=== PATIENT | male | born 1990 | race Caucasian/White ===

== ENCOUNTER → 2020-04-28 12:23 | Outpatient (BNVA) | payer SELFPAY | PROVIDERS: PCP Family Medicine; Visit Provider Nurse Practitioner | DX: R42 Dizziness and giddiness (principal); R82.90 Unspecified abnormal findings in urine | CPT/HCPCS: 81000 ==

== ENCOUNTER 2020-05-07 12:19 | Outpatient (CLI) | payer OTHER, SELFPAY ==
--- NOTE | 2020-05-07 12:48 | XR_ITS ---
WS: [id number] Sinus series, 3 views, 05/07/2020 Clinical Data: DIZZINESS/GIDDINESS Comparison: None. Findings: There are no air-fluid levels. No mucoperiosteal thickening is seen. There is no bone destruction or erosion. The orbits are unremarkable. XR/XR sinus min 3V* [id number] Impression: Negative sinus series.
== END 2020-05-07 12:20 | disposition home or self-care (01) ==
PROVIDERS: PCP Nurse Practitioner Family; Visit Provider Nurse Practitioner Family
DX: R42 Dizziness and giddiness (principal)
CPT/HCPCS: 70220

== ENCOUNTER 2020-07-30 17:59 | Emergency (ER) | payer OTHER, SELFPAY ==
[2020-07-30 20:10] VITALS: BP 154/113; PULSE 106; RESP 18; TEMP 36.8; O2SAT 99; BMI 31.4
--- NOTE | 2020-07-30 20:10 | W.ED.COVID ---
HPI - COVID General: Chief Complaint: COVID symptoms Stated Complaint: TESTED FOR COVID TODAY/SPOUSE POS, HAVING SYMPTOMS Time Seen by Provider: 07/30/20 19:51 Source: patient Mode of arrival: ambulatory Limitations: no limitations History of Present Illness: HPI Narrative: Patient comes in for 3 days of upper respiratory infection symptoms. Patient spouse was positive for COVID. Patient was tested today to rule out COVID. Patient appears mildly unwell. Patient appears in no pain. MD complaint: reported COVID exposure Prior covid testing: yes, results pending at other location COVID 19 common symptoms: positive chills, cough and dyspnea COVID 19 other sytmptoms: positive pleuritic pain Onset (ago): day(s) Severity: mild COVID Results: No Data to Display Review of Systems General: Reports: 10 or more systems reviewed and unremarkable except in HPI and below Const: Reports: chills Resp: Reports: dyspnea PFSH ED PFSH: Social History Smoking and tobacco status: never smoked Alcohol intake: current Physical Exam Const: COMMON NORMALS: no acute distress and patient oriented x3 GENERAL APPEARANCE: cooperative HENMT: COMMON NORMALS: normocephalic, TM's normal bilaterally and Normal external nose present HEAD & SCALP: normal to inspection and normocephalic NOSE: Normal external nose present TYMPANIC MEMBRANE: TM's normal bilaterally MOUTH: Normal oral and palatal mucosa present THROAT: posterior oropharynx normal Eye: GENERAL EYE: appearance normal, both eyes and all related structures Neck/C-Spine: COMMON NORMALS: full ROM Lymph: LYMPHATIC: no lymphadenopathy noted Chest: COMMONS NORMALS: normal inspection of the chest Resp: COMMON NORMALS: normal respiratory effort EFFORT & INSPECTION: Yes able to speak in complete sentences Cardio: COMMON NORMALS: regular rate and regular rhythm RATE: regular rate RHYTHM: regular rhythm GI: COMMON NORMALS: non-tender Back/Pelvis: COMMON NORMALS: thoracic and lumbar spine normal to inspection Extremity: COMMON NORMALS: normal to inspection Neuro: COMMON NORMALS: patient oriented x3 and moves all extremities Psych: COMMON NORMALS: mental status grossly normal and cooperative Skin: COMMON NORMALS: no rashes or lesions noted GENERAL SKIN EXAM: no rashes or lesions noted Course Vital Signs: Vital signs: Vital Signs Temperature 98.3 F 07/30/20 20:10 Pulse Rate 106 H 07/30/20 20:10 Respiratory Rate 18 07/30/20 20:10 Blood Pressure 154/113 07/30/20 20:10 Pulse Oximetry 99 07/30/20 20:10 MDM - COVID MDM Narrative Medical decision making narrative: Patient comes in today for complaints of shortness of breath. And close COVID exposure. On exam no significant abnormalities are noted. Vital signs are stable. Reviewed exam with patient with recommendations for treatment and follow-up. Discussed need for return to the emergency department. Patient has outstanding COVID-19 results through another facility. Patient reports understanding of care plan and need for follow-up. Differential Diagnosis Differential diagnosis: Likely COVID 19 and other viral infection Lab Data COVID Results: No Data to Display Discharge Plan Discharge Patient Disposition: Home Clinical Impression: Close exposure to 2019 novel coronavirus Condition: Stable Prescriptions: No Action meclizine 12.5 mg tablet 12.5 mg PO BID PRN (Reason: dizziness) Qty: 20 RF: 0 ciprofloxacin HCl [Cipro] 500 mg tablet 500 mg PO BID 7 Days Qty: 14 RF: 0 Discharge Orders: Discharge Order (Routine); Ordered 07/30/20 Ordered By: Antoine Juárez Referrals: Jimmie Boland NP [Primary Care Provider] - Discharge Diet: Usual diet Discharge Activity: Increase activity as tolerated Patient Instructions: Upper Respiratory Infection (ED) Activity Restrictions/Additional Instructions: Home and rest. Acetaminophen and ibuprofen for pain and discomfort. Drink plenty of fluids. Stay well-hydrated. Monitor oxygen per pulse ox every 3 hours as needed for evaluation of oxygen saturation. If oxygen saturation is below 90% return to the ER for further evaluation and treatment. Return to the ER as needed for concern. Coding Level of Care Code ED Upper And Bottom Lacer Hand for Chg Fwd Exam Comprehensive
[2020-07-30 20:58] VITALS: O2SAT 99
== END 2020-07-30 21:14 | disposition home or self-care (01) ==
PROVIDERS: Emergency Provider Nurse Practitioner Family; PCP Nurse Practitioner Family
DX: Z20.828 Contact with and (suspected) exposure to other viral communicable diseases (principal)
CPT/HCPCS: 12345; 99282

== ENCOUNTER 2020-08-09 16:36 | Outpatient (CLI) | payer OTHER, SELFPAY ==
--- NOTE | 2020-08-09 | XRR_ITS ---
PROCEDURE INFORMATION: Exam: XR Right Knee Exam date and time: 08/09/2020 4:55 PM Age: 30 years old Clinical indication: Pain and injury or trauma; Other: Hit knee on trailer; Blunt trauma; Right; Additional info: RT knee pain TECHNIQUE: Imaging protocol: XR Right knee. Views: Frontal, lateral, and oblique views. COMPARISON: No relevant prior studies available. FINDINGS: Bones/joints: Normal. Soft tissues: Normal. XR/XR knee RT 3V* [id number] IMPRESSION: No acute findings.
== END 2020-08-09 16:37 | disposition home or self-care (01) ==
LOC: RAD 16:40
PROVIDERS: PCP Nurse Practitioner Family; Visit Provider Nurse Practitioner Family
DX: M25.561 Pain in right knee (principal)
CPT/HCPCS: 73562

== ENCOUNTER 2024-02-08 07:23 | Emergency (ER) | payer SELFPAY ==
[2024-02-08 07:29] VITALS: BP 122/82; PULSE 67; RESP 18; TEMP 36.8; O2SAT 96; BMI 27.6
--- NOTE | 2024-02-08 07:34 | XR_ITS ---
WS: [id number] Exam: XR chest 1V portable [id number] Date/Time of Exam: 02/08/2024 7:34 AM Reason For Exam: syncope No priors. Findings: The lungs are clear and fully expanded. Costophrenic angles are sharp. No infiltrates. Bronchovascula r relief appears normal. Cardiac silhouette is unremarkable. Bony elements are intact. IMPRESSION: Unremarkable chest radiograph.
--- NOTE | 2024-02-08 07:35 | ECG_ITS ---
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 Measurements Intervals [place] Rate: 69 P: 39 NH: 186 QRS: 71 QRSD: 92 T: 2 QT: 358 QTc: 386 Interpretive Statements SINUS RHYTHM No previous ECG available for comparison Electronically Signed On 02-08-2024 16:59:20 CDT by Stella Hendrickson M.D. [id number]
[2024-02-08 08:02] LABS: Basophils % 0.4 %; Eosinophils # 0.1 10^3/uL (0.0-0.8); Eosinophils % 1.1 %; Lymphocytes % 12.1 %; Mean Corpuscular HGB Conc 36.3 g/dL (30-55); Mean Corpuscular Hemoglobin 31.7 pg (27-33); Mean Corpuscular Volume 87.4 fl (82-101); Mean Platelet Volume 9.2 fL (7.4-10.4); Monocytes # 0.6 10^3/uL (0.2-0.9); Monocytes % 7.4 %; Neutrophils # 6.48 10^3/uL (1.8-7.7); Neutrophils % 78.3 %; Nucleated Red Blood Cells % 0 %; Platelet Count 248 10^3/cmm (157-399); Red Blood Count 5.49 10^6/uL (3.85-5.65); Red Cell Distribution Width 12.2 % (12.1-15.1); White Blood Count 8.27 10^3/uL (3.29-11.43)
[2024-02-08 08:08] LABS: Add Urine Microscopic? NO; Charge for UA Resulting for Rev
[2024-02-08 08:13] LABS: Bilirubin Urine Neg (Negative); Blood Urine Neg (Negative); Glucose Urine UA Norm (Normal); Ketones Urine Negative (Negative); Leukocyte Esterase Urine Negative (Negative); Nitrate Urine Negative (Negative); Protein Urine Neg (Negative); Urine Appearance Clear (CLEAR); Urine Color Yellow (Yellow); Urobilinogen Urine Norm (Negative); pH Urine 5 (5-7)
--- NOTE | 2024-02-08 08:13 | ED_ITS ---
HPI - Syncope 2 General: Chief Complaint: Syncope Stated Complaint: passed out at work Time Seen by Provider: 02/08/24 07:27 History of Present Illness: Patient presents to the ER with complaints of was having a syncopal episode this morning. Patient does not remember the event. Patient denies ever having one before. Patient says he ate and drank the same this morning as usual. Patient's in hospital bed resting comfortably no acute distress. Review of Systems 2 General: Reports: 10 or more systems reviewed and unremarkable except in HPI and below PFSH ED 2 PFSH: Social History Smoking and tobacco/nicotine status: never used tobacco/nicotine Alcohol intake: current Physical Exam 2 Const: COMMON NORMALS: no acute distress, average body habitus, patient oriented x3, no limitations, healthy appearing, alert and well nourished HENMT: COMMON NORMALS: normocephalic, atraumatic, hearing grossly normal bilaterally, external ears normal, Normal external nose present, moist oral mucous membranes and oropharynx normal HEAD & SCALP: normocephalic and atraumatic NOSE: Normal external nose present EXTERNAL EAR: Yes external ears normal Eye: COMMON NORMALS: Equal, round and reactive pupils present, EOMs intact bilaterally, conjunctivae normal and no scleral icterus CONJUNCTIVA: Yes conjunctivae normal PUPIL: Yes Equal, round and reactive pupils present Neck/C-Spine: COMMON NORMALS: full ROM, no lymphadenopathy, supple, no meningeal signs, no JVD and Thyroid normal THYROID: Thyroid normal Chest: COMMONS NORMALS: normal inspection of the chest and normal palpation of entire chest wall Resp: COMMON NORMALS: normal respiratory effort, No retractions, No use of accessory muscles and clear to auscultation bilaterally AUSCULTATION: clear to auscultation bilaterally Cardio: COMMON NORMALS: no JVD, regular rate, regular rhythm, S1 normal heart sound present, S2 normal heart sound present, No gallops present (Cardio), No clicks present (Cardio), No murmurs present (Cardio) and No rub (Cardio) R ATE: regular rate RHYTHM: regular rhythm HEART SOUNDS: S1 normal heart sound present and S2 normal heart sound present GI: COMMON NORMALS: Normal to inspection, nondistended, normoactive bowel sounds present, Soft to palpation, non-tender, No hepatosplenomegaly present and no masses PALPATION: Yes Soft to palpation and Yes No hepatosplenomegaly present Neuro: COMMON NORMALS: patient oriented x3 SENSORIUM/ORIENTATION: Yes alert MENINGEAL SIGNS: Yes no meningeal signs Course 2 Vital Signs: Vital signs: Vital Signs Temperature 98.3 F 02/08/24 07:29 Pulse Rate 72 02/08/24 09:36 Respiratory Rate 18 02/08/24 07:29 Blood Pressure 135/107 02/08/24 09:36 Pulse Oximetry 98 02/08/24 09:36 Oxygen Delivery Me thod Room Air 02/08/24 07:29 MDM - Syncope Medical Decision Making Patient physical exam as well as lab work performed included CBC CMP cardiac enzymes, chest x-ray, urine urine drug screen and EKG, all of which was essentially benign. Results was discussed with the patient patient be discharged to follow-up with his PCP within next 7 days for further evaluation and treatment. Differential Diagnosis Likely vasovagal syncope; Unlikely syncope due to orthostatic hypotension, complete atrioventricular block, subarachnoid hemorrhage, pulmonary embolism or dehydration Medical Records I reviewed the patient's medical records. Lab Data I reviewed the patient's lab results. 02/08/24 07:55 02/08/24 07:55 Laboratory Results WBC 8.27 10^3/uL (3.29-11.43) 02/08/24 07:55 RBC 5.49 10^6/uL (3.85-5.65) 02/08/24 07:55 Hgb 17.40 g/dL (11.27-16.99) H 02/08/24 07:55 Hct 48.0 % (37-53) 02/08/24 07:55 MCV 87.4 fl (82-101) 02/08/24 07:55 MCH 31.7 pg (27-33) 02/08/24 07:55 MCHC 36.3 g/dL (30-55) 02/08/24 07:55 RDW 12.2 % (12.1-15.1) 02/08/24 07:55 Plt Count 248 10^3/cmm (157-399) 02/08/24 07:55 MPV 9.2 fL (7.4-10.4) 02/08/24 07:55 Neut % (Auto) 78.3 % 02/08/24 07:55 Lymph % (Auto) 12.1 % 02/08/24 07:55 [place] % (Auto) 7.4 % 02/08/24 07:55 Eos % (Auto) 1.1 % 02/08/24 07:55 Baso % (Auto) 0.4 % 02/08/24 07:55 Neut # (Auto) 6.48 10^3/uL (1.8-7.7) 02/08/24 07:55 Lymph # (Auto) 1.0 10^3/uL (0.8-4.8) 02/08/24 07:55 Randolph # (Auto) 0.6 10^3/uL (0.2-0.9) 02/08/24 07:55 Eos # (Auto) 0.1 10^3/uL (0.0-0.8) 02/08/24 07:55 Baso # (Auto) 0.0 10^3/uL (0.0-0.1) 02/08/24 07:55 Nucleated RBC % (auto) 0 % 02/08/24 07:55 Nucleated RBCs # 0.0 /100WBC 02/08/24 07:55 Sodium 140 mmol/L (136-145) 02/08/24 07:55 Potassium 4.1 mmol/L (3.5-5.1) 02/08/24 07:55 Chloride 100 mmol/L (98-107) 02/08/24 07:55 Carbon Dioxide 27 mmol/L (22-29) 02/08/24 07:55 Anion Gap 17.1 (5-19) 02/08/24 07:55 BUN 18 mg/dL (6-20) 02/08/24 07:55 Creatinine 1.0 mg/dL (0.7-1.2) 02/08/24 07:55 GFR Calculation 87.2 mL/min (90-130) L 02/08/24 07:55 Glucose 103 mg/dL (65-115) 02/08/24 07:55 Calculated Osmolality 292 mOsm/kg (285-295) 02/08/24 07:55 Calcium 10.0 mg/dL (8.5-10.5) 02/08/24 07:55 Magnesium 2.0 mg/dL (1.7-2.3) 02/08/24 07:55 Total Bilirubin 0.4 mg/dL (0.15-1.2) 02/08/24 07:55 AST 15 U/L (0-40) 02/08/24 07:55 ALT 25 U/L (0-41) 02/08/24 07:55 Alkaline Phosphatase 80 U/L (40-130) 02/08/24 07:55 Troponin T Baseline < 6 ng/L (0-15) 02/08/24 07:55 Total Protein 7.4 g/dL (6.6-8.7) 02/08/24 07:55 Albumin 4.7 g/dL (3.5-5.2) 02/08/24 07:55 Globulin 2.7 g/dL (1.3-4.6) 02/08/24 07:55 TSH 2.06 uIU/mL (0.27-4.20) 02/08/24 07:55 Urine Color Yellow (Yellow) 02/08/24 08:04 Urine Appearance Clear (CLEAR) 02/08/24 08:04 Urine pH 5 (5-7) 02/08/24 08:04 Ur Specific [place] 1.030 (1.005-1.030) 02/08/24 08:04 Urine Protein Neg (Negative) 02/08/24 08:04 Urine Glucose (UA) Norm (Normal) 02/08/24 08:04 Urine Ketones Negative (Negative) 02/08/24 08:04 Urine Blood Neg (Negative) 02/08/24 08:04 Urine Nitrate Negative (Negative) 02/08/24 08:04 Urine Bilirubin Neg (Negative) 02/08/24 08:04 Urine Urobilinogen Norm mg/dL (Negative) 02/08/24 08:04 Ur Leukocyte Esterase Negative (Negative) 02/08/24 08:04 Urine Opiates Screen Negative ng/mL (Negative) 02/08/24 08:04 Ur Barbiturates Screen Negative ng/mL (Negative) 02/08/24 08:04 Ur Phencyclidine Scrn Negative ng/mL (Negative) 02/08/24 08:04 Ur Amphetamines Screen Negative ng/mL (Negative) 02/08/24 08:04 U Benzodiazepines Scrn Negative ng/mL (Negative) 02/08/24 08:04 Urine Cocaine Screen Negative ng/mL (Negative) 02/08/24 08:04 U Marijuana (THC) Screen Negative ng/mL (Negative) 02/08/24 08:04 All radiology interpretation(s) finalized by discharge EKG Data EKG 1: I personally reviewed and interpreted this EKG as follows: EKG interpretation date: 02/08/24 EKG interpretation time: 07:47 Prior EKG tracings: not available for review Interpretation: Ventricular rate 69 bpm, WI interval 186, QRS duration 92, QTc 378, sinus rhythm, Discharge Plan Discharge Patient Disposition: Home Clinical Impression: Syncope Qualifiers: Syncope type: unspecified Qualified Code(s): R55 - Syncope and collapse Condition: Stable Prescriptions: No Action No Known Home Medications Discharge Orders: Discharge ED (Routine); Ordered 02/08/24 Ordered By: Saeid Gonzales Patient Instructions: Syncope (ED) Activity Restrictions/Additional Instructions: Your evaluation in ER did not show any acute cause of your syncope. Please follow-up with your family practice physician in the next 7 days for further evaluation and treatment. If this happens again please feel free to return to the ER. Coding Level of Care Code ED Product Safety Expert for Santo Jones
[2024-02-08 08:19] LABS: Amphetamines Screen Urine Negative (Negative); Barbiturates Screen Urine Negative (Negative); Benzodiazepines Screen Urine Negative (Negative); Cocaine Screen Urine Negative (Negative); Opiate Screen Urine Negative (Negative); PCP Screen Urine Negative (Negative); THC Screen Urine Negative (Negative)
[2024-02-08 08:24] LABS: Troponin(5th) Baseline < 6 ng/L (0-15)
[2024-02-08 08:32] LABS: Alanine Aminotransferase 25 U/L (0-41); Albumin Level 4.7 g/dL (3.5-5.2); Alkaline Phosphatase 80 U/L (40-130); Anion Gap 17.1 (5-19); Aspartate Amino Transferase 15 U/L (0-40); Blood Urea Nitrogen 18 mg/dL (6-20); Carbon Dioxide 27 mmol/L (22-29); Chloride 100 mmol/L (98-107); Creatinine Clr Calc Pharmacy 122.7831; Globulin 2.7 g/dL (1.3-4.6); Glomerular Filtration Rate 87.2 mL/min (90-130); Glucose 103 mg/dL (65-115); Osmolality Calculated 292 mOsm/kg (285-295); Potassium 4.1 mmol/L (3.5-5.1); Sodium 140 mmol/L (136-145); Thyroid Stimulating Hormone 2.06 uIU/mL (0.27-4.20); Total Bilirubin 0.4 mg/dL (0.15-1.2); Total Protein 7.4 g/dL (6.6-8.7)
[2024-02-08 08:33] VITALS: BP 158/112; PULSE 64; O2SAT 96
[2024-02-08 09:36] VITALS: BP 135/107; PULSE 72; O2SAT 98
== END 2024-02-08 09:37 | disposition home or self-care (01) ==
PROVIDERS: Emergency Provider Emergency Medicine
DX: R55 Syncope and collapse (principal)
CPT/HCPCS: 71045; 80053; 80306; 81003; 83735; 84443; 84484; 85025; 93005; 99285

== ENCOUNTER 2024-11-04 14:04 | Emergency (ER) | payer OTHER, SELFPAY ==
[2024-11-04 14:15] VITALS: BP 138/96; PULSE 78; RESP 17; TEMP 36.7; O2SAT 98; BMI 30.4
--- NOTE | 2024-11-04 16:01 | W.ED.EYEPROB ---
HPI - Eye Problem General: Chief complaint: Eye Problems Stated complaint: left eye pain Time Seen by Provider: 11/04/24 15:25 Source: patient Mode of arrival: ambulatory Limitations: no limitations History of Present Illness: 34-year-old male who states that this morning he noticed drooping and numbness to the left side of his face. He states he has been having some difficulty closing his left eye has had left-sided facial droop. He denies any headache denies any slurred speech denies any other weakness. He denies any worse improved factors Associated symptoms: Denies fever(s), headache(s), nausea, neck pain or vomiting Related Data Previous Rx's Medication Instructions Recorded ondansetron 8 mg disintegrating 8 mg PO Q8H 5 days #15 tabs 03/08/24 tablet prednisone 50 mg tablet 50 mg PO DAILY #5 tabs 11/04/24 Allergies Allergy/AdvReac Type Severity Reaction Status Date / Time No Known Allergies Allergy Verified 11/04/24 14:18 Review of Systems Const: Denies: fever(s), chills, body aches or change in appetite Eyes: Denies: blurry vision or eye discomfort ENMT: Denies: throat pain or dental pain Card: Denies: chest pain Resp: Denies: dyspnea GI: Denies: abdominal pain, nausea, vomiting or diarrhea Musc: Denies: neck pain or back pain Skin/Breast: Denies: rash Neuro: Denies: headache(s) PFS ED PFSH: Social History Smoking and tobacco/nicotine status: never used tobacco/nicotine Alcohol intake: current Physical Exam Const: COMMON NORMALS: no acute distress, patient oriented x3 and healthy appearing HENMT: COMMON NORMALS: normocephalic and atraumatic HEAD & SCALP: normocephalic and atraumatic Eye: COMMON NORMALS: Equal, round and reactive pupils present and EOMs intact bilaterally PUPIL: Yes Equal, round and reactive pupils present Neck/C-Spine: COMMON NORMALS: full ROM and supple Chest: COMMONS NORMALS: normal inspection of the chest Resp: COMMON NORMALS: normal respiratory effort Cardio: COMMON NORMALS: regular rate, regular rhythm and No murmurs present (Cardio) RATE: regular rate RHYTHM: regular rhythm GI: COMMON NORMALS: Normal to inspection, nondistended, normoactive bowel sounds present, Soft to palpation, non-tender and no masses PALPATION: Yes Soft to palpation Extremity: COMMON NORMALS: normal to inspection and full ROM Neuro: COMMON NORMALS: patient oriented x3 and moves all extremities SPEECH: speech normal GAIT: Yes Normal gait present MOTOR EXAM: 5/5 motor strength present throughout OTHER: Facial droop noted to the left side of the face has difficulty closing his left eye Psych: COMMON NORMALS: mental status grossly normal, Normal thought process present and cooperative THOUGHT PROCESS: Normal thought process present Skin: COMMON NORMALS: no rashes or lesions noted and no wounds GENERAL SKIN EXAM: no rashes or lesions noted Course Vital Signs: Vital signs: Vital Signs Temperature 98.1 F 11/04/24 14:15 Pulse Rate 78 11/04/24 14:15 Respiratory Rate 17 11/04/24 14:15 Blood Pressure 138/96 11/04/24 14:15 Pulse Oximetry 98 11/04/24 14:15 Oxygen Delivery Me thod Room Air 11/04/24 14:15 MDM - Eye Problem Medical Decision Making Patient presents with a Almanzar's palsy has no signs of a stroke we will start him on steroids he is well-appearing here he stable for discharge follow-up PCP return if worsening understand agrees to plan. Medical Records I reviewed the patient's medical records. No radiology studies performed this visit Discharge Plan Discharge Patient Disposition: Home Clinical Impression: Almanzar's palsy Condition: Stable Prescriptions: New prednisone 50 mg tablet 50 mg PO DAILY Qty: 5 0RF No Action ondansetron 8 mg tablet,disintegrating 8 mg PO Q8H 5 Days Qty: 15 0RF Discharge Orders: Discharge ED (Routine); Ordered 11/04/24 Ordered By: Adrienne Castaneda Discharge Diet: Advance as tolerated Discharge Activity: Resume usual activity Patient Instructions: Almanzar Palsy (ED) Coding Level of Care Code ED Line Locator for Santo Jones NIH stroke score NIHSS Level Of Consciousness - 1a: 0 Level Of Consciousness Questions - 1b: Both Correct Level Of Consciousness Commands - 1c: Both Correct Best Gaze - 2: Normal Visual Burns - 3: No Visual Loss Facial Palsy - 4: Partial Paralysis Motor Arm Right - 5: No Drift Motor Arm Left - 5: No Drift Motor Leg Right - 6: No Drift Motor Leg Left - 6: No Drift Limb Ataxia - 7: Absent Sensory - 8: Normal Best Language - 9: No Aphasia Dysarthia - 10: Normal Extinction And Inattention - 11: 0 Score Total Score: 2
[2024-11-04] MEDS: predniSONE 20 mg Tablet 60 MG PO (16:05)
[2024-11-04 16:11] VITALS: BP 119/88; PULSE 68; O2SAT 97
== END 2024-11-04 16:12 | disposition home or self-care (01) ==
PROVIDERS: Emergency Provider Emergency Medicine
DX: G51.0 Bell's palsy (principal)
CPT/HCPCS: 99283; J7512

== ENCOUNTER 2024-11-25 15:49 | Emergency (ER) | payer OTHER, SELFPAY ==
[2024-11-25 15:51] VITALS: BP 134/97; PULSE 123; TEMP 37.4; O2SAT 95
--- NOTE | 2024-11-25 16:27 | CTR_ITS ---
PROCEDURE INFORMATION: Exam: CT Head Without Contrast Exam date and time: 11/25/2024 5:07 PM Age: 34 years old Clinical indication: Pain; Headache; Migraine; Aura effect not specified; Other: Unknown; Additional info: [place] TECHNIQUE: Imaging protocol: Computed tomography of the head without contrast. Radiation optimization: All CT scans at this facility use at least one of these dose optimization techniques: automated exposure control; mA and/or kV adjustment per patient size (includes targeted exams where dose is matched to clinical indication); or iterative reconstruction. COMPARISON: CT facial bones wo con* [id number] 03/10/2019 11:12 PM RADIATION DOSE METRICS: Total DLP (mGy-cm): 1250.21 FINDINGS: Brain: Normal. No hemorrhage. Unremarkable white matter. No mass effect. Cerebral ventricles: Normal in size, for age, and midline in position. Paranasal sinuses: Visualized sinuses are clear. No air fluid levels. Mastoid air cells: Visualized mastoid air cells are well aerated. Bones: Intact. No acute fracture detected. Soft tissues: Unremarkable. Other: There is moderate to marked cerumen within the external auditory canals bilaterally. CT/CT head wo con* [id number] IMPRESSION: No acute intracranial abnormality. If there is persistent clinical concern, MRI may be helpful for further evaluation.
--- NOTE | 2024-11-25 16:28 | ED_ITS ---
HPI - Headache General: Chief Complaint: Headache Stated Complaint: forehead pressure Time Seen by Provider: 11/25/24 16:22 Source: patient Mode of arrival: ambulatory Limitations: no limitations History of Present Illness: 34-year-old male who states that he has had a headache since this morning. He states he has been getting frequent migraines recently. He states headaches gradually worse and has had some vomiting photophobia and photophobia denies any fever rates his headache a 7 out of 10 currently Associated symptoms: Deny chest pain, fever(s), nausea, rash or vomiting Related Data Home Medications ?Medication ?Instructions ?Recorded ?Confirmed No Known Home Medications 11/25/2402/13 Allergies Allergy/AdvReac Type Severity Reaction Status Date / Time No Known Allergies Allergy Verified 11/25/24 15:56 Review of Systems Const: Denies: fever(s), chills, body aches or change in appetite Eyes: Denies: blurry vision or eye discomfort ENMT: Denies: throat pain or dental pain Card: Denies: chest pain Resp: Denies: dyspnea GI: Denies: abdominal pain, nausea, vomiting or diarrhea Musc: Denies: neck pain or back pain Skin/Breast: Denies: rash Neuro: Reports: headache(s) PFSH ED PFSH: Social History Smoking and tobacco/nicotine status: never used tobacco/nicotine Alcohol intake: current Physical Exam Const: COMMON NORMALS: no acute distress, patient oriented x3 and healthy appearing HENMT: COMMON NORMALS: normocephalic and atraumatic HEAD & SCALP: normocephalic and atraumatic Eye: COMMON NORMALS: Equal, round and reactive pupils present PUPIL: Yes Equal, round and reactive pupils present Neck/C-Spine: COMMON NORMALS: full ROM and supple Chest: COMMONS NORMALS: normal inspection of the chest Resp: COMMON NORMALS: normal respiratory effort, No retractions, No use of accessory muscles and clear to auscultation bilaterally AUSCULTATION: clear to auscultation bilaterally Cardio: COMMON NORMALS: regular rate, regular rhythm and No murmurs present (Cardio) RATE: regular rate RHYTHM: regular rhythm Extremity: COMMON NORMALS: normal to inspection and full ROM Neuro: COMMON NORMALS: patient oriented x3, moves all extremities and no focal motor deficits Psych: COMMON NORMALS: mental status grossly normal, Normal thought process present and cooperative THOUGHT PROCESS: Normal thought process present Skin: COMMON NORMALS: no rashes or lesions noted and no wounds GENERAL SKIN EXAM: no rashes or lesions noted Course Vital Signs: Vital signs: Vital Signs Temperature 99.4 F 11/25/24 15:51 Pulse Rate 106 H 11/25/24 16:59 Blood Pressure 140/89 11/25/24 16:59 Pulse Oximetry 95 11/25/24 16:59 Oxygen Delivery Me thod Room Air 11/25/24 16:59 MDM - Headache Medical Decision Making Patient presents with headaches likely migraine headache CT head here is normal he has no signs of meningitis he stable for discharge follow-up PCP return if worsening. Medical Records I reviewed the patient's medical records. Lab Data Radiology Impressions Head CT 11/25/24 16:27 IMPRESSION: No acute intracranial abnormality. If there is persistent clinical concern, MRI may be helpful for further evaluation. All radiology interpretation(s) finalized by discharge Discharge Plan Discharge Patient Disposition: Home Clinical Impression: Headache Condition: Stable Prescriptions: No Action No Known Home Medications Discharge Orders: Discharge ED (Routine); Ordered 11/25/24 Ordered By: Adrienne Castaneda Discharge Diet: Advance as tolerated Discharge Activity: Resume usual activity Patient Instructions: General Headache (ED) Print Language: [place] Citizen Coding Level of Care Code ED Electronic Tech for Santo Jones
[2024-11-25] MEDS: ketorolac 30 mg/mL INJ 15 MG IVP (16:53)
[2024-11-25] MEDS: diphenhydrAMINE 50 mg/mL SDV 1mL IVP (16:55)
[2024-11-25] MEDS: metoclopramide 5 mg/mL SDV 2 mL 10 MG IVP (16:56)
[2024-11-25 16:59] VITALS: BP 140/89; PULSE 106; O2SAT 95
[2024-11-25 17:45] VITALS: BP 120/89; PULSE 106; O2SAT 94
== END 2024-11-25 17:47 | disposition home or self-care (01) ==
PROVIDERS: Emergency Provider Emergency Medicine
DX: R51.9 Headache, unspecified (principal)
CPT/HCPCS: 70450; 96374; 96375; 99285; J1200; J1885; J2765

== ENCOUNTER 2024-11-27 13:22 | Emergency (ER) | payer OTHER, SELFPAY ==
[2024-11-27 13:38] VITALS: BP 137/100; PULSE 107; RESP 18; TEMP 37.8; O2SAT 97; BMI 30.7
[2024-11-27 14:03] LABS: Basophils % 0.6 %; Eosinophils % 0.2 %; Hematocrit 51.6 % (37-53); Lymphocytes # 0.7 10^3/uL (0.8-4.8); Lymphocytes % 14.3 %; Mean Corpuscular HGB Conc 34.7 g/dL (30-55); Mean Corpuscular Hemoglobin 31.6 pg (27-33); Mean Corpuscular Volume 91.2 fl (82-101); Mean Platelet Volume 9.4 fL (7.4-10.4); Monocytes % 18.6 %; Neutrophils % 65.9 %; Nucleated Red Blood Cells % 0 %; Platelet Count 224 10^3/cmm (157-399); Red Blood Count 5.66 10^6/uL (3.85-5.65); Red Cell Distribution Width 12.4 % (12.1-15.1); White Blood Count 5.16 10^3/uL (3.29-11.43)
[2024-11-27 14:20] LABS: Alanine Aminotransferase 29 U/L (0-41); Albumin Level 4.5 g/dL (3.5-5.2); Alkaline Phosphatase 67 U/L (40-130); Anion Gap 14.9 (5-19); Aspartate Amino Transferase 19 U/L (0-40); Blood Urea Nitrogen 14 mg/dL (6-20); Calcium 9.3 mg/dL (8.5-10.5); Carbon Dioxide 28 mmol/L (22-29); Chloride 99 mmol/L (98-107); Globulin 3.2 g/dL (1.3-4.6); Glomerular Filtration Rate 77.6 mL/min (90-130); Glucose 79 mg/dL (65-115); Lipase 31 U/L (13-60); Osmolality Calculated 285 mOsm/kg (285-295); Potassium 3.9 mmol/L (3.5-5.1); Sodium 138 mmol/L (136-145); Total Bilirubin 0.7 mg/dL (0.15-1.2); Total Protein 7.7 g/dL (6.6-8.7)
[2024-11-27 14:47] LABS: Covid PCR NEGATIVE (Negative); Influenza A POSITIVE (Negative); Influenza B NEGATIVE (Negative); Respiratory Syncytial Virus Ce NEGATIVE (Negative)
--- NOTE | 2024-11-27 17:28 | ED_ITS ---
HPI - URI/Sore Throat 2 General: Chief Complaint: Upper Respiratory Infection Stated Complaint: vomitting Time Seen by Provider: 11/27/24 17:08 Source: patient Mode of arrival: ambulatory Limitations: no limitations History of Present Illness: 34-year-old male states that he has been having fevers along with cough congestion and headaches. He states been having headaches quite some time the fever cough and congestion just started yesterday. He denies any worsening improving factors. Associated symptoms: Reports chills, fever(s) and headache(s); Deny abdominal pain, chest pain, diarrhea, nausea or vomiting Related Data Previous Rx's ?Medication ?Instructions ?Recorded ondansetron 4 mg disintegrating 4 mg PO Q6H PRN nausea and 11/27/24 tablet vomiting #14 tabs oseltamivir 75 mg capsule (Tamiflu) 75 mg PO BID 5 day s #10 caps 11/27/24 Allergies Allergy/AdvReac Type Severity Reaction Status Date / Time No Known Allergies Allergy Verified 11/27/24 13:41 Review of Systems 2 Const: Reports: fever(s), chills and fatigue; Denies: body aches or change in appetite ENMT: Denies: throat pain or dental pain Card: Denies: chest pain Resp: Reports: non-productive cough GI: Denies: abdominal pain, nausea, vomiting or diarrhea Musc: Denies: neck pain or back pain Skin/Breast: Denies: rash Neuro: Reports: headache(s) PFSH ED 2 PFSH: Social History Smoking and tobacco/nicotine status: never used tobacco/nicotine Alcohol intake: current Physical Exam 2 Const: COMMON NORMALS: no acute distress, patient oriented x3 and healthy appearing HENMT: COMMON NORMALS: normocephalic and atraumatic HEAD & SCALP: n ormocephalic and atraumatic Neck/C-Spine: COMMON NORMALS: full ROM and supple Chest: COMMONS NORMALS: normal inspection of the chest and normal palpation of entire chest wall Resp: COMMON NORMALS: normal respiratory effort, No retractions, No use of accessory muscles and clear to auscultation bilaterally AUSCULTATION: clear to auscultation bilaterally Cardio: COMMON NORMALS: regular rate, regular rhythm and No murmurs present (Cardio) RATE: regular rate RHYTHM: regular rhythm GI: COMMON NORMALS: Normal to inspection, nondistended, normoactive bowel sounds present, Soft to palpation, non-tender and no masses PALPATION: Yes Soft to palpation Extremity: COMMON NORMALS: normal to inspection and full ROM Neuro: COMMON NORMALS: patient oriented x3, moves all extremities and no focal motor deficits Psych: COMMON NORMALS: mental status grossly normal, Normal thought process present and cooperative THOUGHT PROCESS: Normal thought process present Skin: COMMON NORMALS: no rashes or lesions noted and no wounds GENERAL SKIN EXAM: no rashes or lesions noted Course 2 Vital Signs: Vital signs: Vital Signs Temperature 100.0 F H 11/27/24 13:38 Pulse Rate 107 H 11/27/24 13:38 Respiratory Rate 18 11/27/24 13:38 Blood Pressure 137/100 11/27/24 13:38 Pulse Oximetry 97 11/27/24 13:38 Oxygen Delivery Me thod Room Air 11/27/24 13:38 MDM - URI/Sore Throat Medical Decision Making Patient presents with fever cough congestion is flu positive we will place him on Tamiflu he stable for discharge follow-up PCP return if worsening. Medical Records I reviewed the patient's medical records. Lab Data I reviewed the patient's lab results. 11/27/24 13:56 11/27/24 13:56 Laboratory Results WBC 5.16 10^3/uL (3.29-11.43) 11/27/24 13:56 RBC 5.66 10^6/uL (3.85-5.65) H 11/27/24 13:56 Hgb 17.90 g/dL (11.27-16.99) H 11/27/24 13:56 Hct 51.6 % (37-53) 11/27/24 13:56 MCV 91.2 fl (82-101) 11/27/24 13:56 MCH 31.6 pg (27-33) 11/27/24 13:56 MCHC 34.7 g/dL (30-55) 11/27/24 13:56 RDW 12.4 % (12.1-15.1) 11/27/24 13:56 Plt Count 224 10^3/cmm (157-399) 11/27/24 13:56 MPV 9.4 fL (7.4-10.4) 11/27/24 13:56 Neut % (Auto) 65.9 % 11/27/24 13:56 Lymph % (Auto) 14.3 % 11/27/24 13:56 [place] % (Auto) 18.6 % 11/27/24 13:56 Eos % (Auto) 0.2 % 11/27/24 13:56 Baso % (Auto) 0.6 % 11/27/24 13:56 Neut # (Auto) 3.40 10^3/uL (1.8-7.7) 11/27/24 13:56 Lymph # (Auto) 0.7 10^3/uL (0.8-4.8) L 11/27/24 13:56 [place] # (Auto) 1.0 10^3/uL (0.2-0.9) H 11/27/24 13:56 Eos # (Auto) 0.0 10^3/uL (0.0-0.8) 11/27/24 13:56 Baso # (Auto) 0.0 10^3/uL (0.0-0.1) 11/27/24 13:56 Nucleated RBC % (auto) 0 % 11/27/24 13:56 Nucleated RBCs # 0.0 /100WBC 11/27/24 13:56 Sodium 138 mmol/L (136-145) 11/27/24 13:56 Potassium 3.9 mmol/L (3.5-5.1) 11/27/24 13:56 Chloride 99 mmol/L (98-107) 11/27/24 13:56 Carbon Dioxide 28 mmol/L (22-29) 11/27/24 13:56 Anion Gap 14.9 (5-19) 11/27/24 13:56 BUN 14 mg/dL (6-20) 11/27/24 13:56 Creatinine 1.1 mg/dL (0.7-1.2) 11/27/24 13:56 GFR Calculation 77.6 mL/min (90-130) L 11/27/24 13:56 Glucose 79 mg/dL (65-115) 11/27/24 13:56 Calculated Osmolality 285 mOsm/kg (285-295) 11/27/24 13:56 Calcium 9.3 mg/dL (8.5-10.5) 11/27/24 13:56 Total Bilirubin 0.7 mg/dL (0.15-1.2) 11/27/24 13:56 AST 19 U/L (0-40) 11/27/24 13:56 ALT 29 U/L (0-41) 11/27/24 13:56 Alkaline Phosphatase 67 U/L (40-130) 11/27/24 13:56 Total Protein 7.7 g/dL (6.6-8.7) 11/27/24 13:56 Albumin 4.5 g/dL (3.5-5.2) 11/27/24 13:56 Globulin 3.2 g/dL (1.3-4.6) 11/27/24 13:56 Lipase 31 U/L (13-60) 11/27/24 13:56 Coronavirus (PCR) Negative (Negative) 11/27/24 13:45 Influenza A (PCR) Positive (Negative) 11/27/24 13:45 Influenza Type B (PCR) Negative (Negative) 11/27/24 13:45 RSV (PCR) Negative (Negative) 11/27/24 13:45 No radiology studies performed this visit Discharge Plan Discharge Patient Disposition: Home Clinical Impression: Influenza Condition: Stable Prescriptions: New ondansetron 4 mg tablet,disintegrating 4 mg PO Q6H PRN (Reason: nausea and vomiting) Qty: 14 0RF oseltamivir [Tamiflu] 75 mg capsule 75 mg PO BID 5 Days Qty: 10 0RF Discharge Orders: Discharge ED (Routine); Ordered 11/27/24 Ordered By: Adrienne Castaneda Discharge Diet: Advance as tolerated Discharge Activity: Resume usual activity Patient Instructions: Influenza (ED) Print Language: Lao Coding Level of Care Code ED Medical Sonographer for Santo Jones
[2024-11-27 17:58] VITALS: BP 118/84; PULSE 105; RESP 16; O2SAT 99
== END 2024-11-27 17:37 | disposition home or self-care (01) ==
PROVIDERS: Emergency Provider Emergency Medicine
DX: J10.1 Influenza due to other identified influenza virus with other respiratory manifestations (principal); Z11.52 Encounter for screening for COVID-19
CPT/HCPCS: 36415; 80053; 83690; 85025; 87637; 99283

== ENCOUNTER 2025-04-15 05:51 | Emergency (ER) | payer OTHER, SELFPAY ==
[2025-04-15 05:55] VITALS: BP 143/93; PULSE 81; RESP 20; TEMP 36.6; O2SAT 98; BMI 30.7
--- NOTE | 2025-04-15 06:02 | ECG_ITS ---
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
--- NOTE | 2025-04-15 06:04 | XRR_ITS ---
PROCEDURE INFORMATION: Exam: XR Chest Exam date and time: 04/15/2025 6:07 AM Age: 34 years old Clinical indication: Pain; Chest pressure; Additional info: Chest pain TECHNIQUE: Imaging protocol: Radiologic exam of the chest. Views: 1 view. COMPARISON: CR XR chest 1V portable [id number] 02/08/2024 7:41 AM FINDINGS: Lungs: No significant or acute findings. No consolidation. Pleural spaces: No significant costophrenic angle blunting. No pneumothorax. Heart/Mediastinum: Heart size is normal. Bones/joints: No acute osseous abnormality. XR/XR chest 1V portable [id number] IMPRESSION: No acute abnormality demonstrated.
[2025-04-15 06:32] LABS: Basophils % 0.4 %; Eosinophils # 0.1 10^3/uL (0.0-0.8); Eosinophils % 1.2 %; Hematocrit 46.4 % (37-53); Lymphocytes # 1.6 10^3/uL (0.8-4.8); Lymphocytes % 20.6 %; Mean Corpuscular HGB Conc 36.6 g/dL (30-55); Mean Corpuscular Hemoglobin 31.4 pg (27-33); Mean Corpuscular Volume 85.8 fl (82-101); Mean Platelet Volume 9.2 fL (7.4-10.4); Monocytes # 0.9 10^3/uL (0.2-0.9); Monocytes % 10.9 %; Neutrophils % 66.4 %; Nucleated Red Blood Cells % 0 %; Platelet Count 294 10^3/cmm (157-399); Red Blood Count 5.41 10^6/uL (3.85-5.65); White Blood Count 7.82 10^3/uL (3.29-11.43)
[2025-04-15 06:44] LABS: Troponin(5th) Baseline < 6 ng/L (0-15)
--- NOTE | 2025-04-15 06:49 | ED_ITS ---
HPI - Chest Pain 2 General: Chief Complaint: Chest Pain Stated Complaint: SOB\Buring in Chest and Back\V Time Seen by Provider: 04/15/25 06:07 History of Present Illness: 34-year-old man who presents to the [facility] room with chest pain. He says he felt dizzy and lightheaded and became diaphoretic while he was at work. He then went to [facility] and developed a sharp chest pain in the center of his chest. Still with this pain. Hurts worse with breathing. No further nausea or vomiting. Radiates into his back. He says he feels somewhat short of breath. Related Data Previous Rx's ?Medication ?Instructions ?Recorded ondansetron 4 mg disintegrating 4 mg PO Q6H PRN nausea and 11/27/24 tablet vomiting #14 tabs Allergies Allergy/AdvReac Type Severity Reaction Status Date / Time No Known Allergies Allergy Verified 11/27/24 13:41 Review of Systems 2 Narrative: Constitutional symptoms: Negative except as documented in HPI. Skin symptoms: Negative except as documented in HPI. Eye symptoms: Negative except as documented in HPI. ENMT symptoms: Negative except as documented in HPI. Respiratory symptoms: Negative except as documented in HPI. Cardiovascular symptoms: Negative except as documented in HPI. Gastrointestinal symptoms: Negative except as documented in HPI. Genitourinary symptoms: Negative except as documented in HPI. Musculoskeletal symptoms: Negative except as documented in HPI. Neurologic symptoms: Negative except as documented in HPI. Psychiatric symptoms: Negative except as documented in HPI. Endocrine symptoms: Negative except as documented in HPI. PFSH ED 2 PFSH: Social History Smoking and tobacco/nicotine status: never used tobacco/nicotine Alcohol intake: current Physical Exam 2 Narrative: EXAM NARRATIVE: General: Alert, no acute distress. Skin: Warm, dry. Head: Normocephalic, atraumatic. Neck: Supple, trachea midline. Eye: Extraocular movements are intact. Ears, nose, mouth and throat: mucosa moist. Cardiovascular: Regular, Normal peripheral perfusion. Respiratory: Lungs are clear to auscultation, respirations are non-labored, breath sounds are equal, Symmetrical chest wall expansion. Gastrointestinal: Soft, Nontender, Non distended Musculoskeletal: Normal ROM, no deformity. Neurological: Alert and oriented, No focal neurological deficit observed. Psychiatric: Cooperative, appropriate mood & affect. Course 2 Vital Signs: Vital signs: Vital Signs Temperature 97.8 F 04/15/25 05:55 Pulse Rate 72 04/15/25 07:15 Respiratory Rate 20 H 04/15/25 07:15 Blood Pressure 117/85 04/15/25 07:15 Pulse Oximetry 99 04/15/25 07:15 Oxygen Delivery Me thod Room Air 04/15/25 07:15 MDM - Chest Pain Medical Decision Making Differential diagnosis for patient with chest pain includes but is not limited to and based on the above HPI, review of systems and physical exam: Pneumonia. unstable angina. angina. Acute coronary syndrome / [place]. Pulmonary embolism. Costochondritis / musculoskeletal. Pleurisy. Pericarditis. Esophageal spasm. Pancreatis. Cholecystitis. Orders placed to evaluate differential diagnosis based on the above differential, HPI and physical exam EKG: Time 6:02 AM. Rate 77. Normal sinus rhythm, No ST-T changes, no ectopy, normal AL & QRS intervals, This was reviewed and interpreted by myself the ER physician at 6:05 AM Chest x-ray: No acute process. No infiltrate. No pneumothorax. This was reviewed and interpreted by myself the emergency room physician. I also reviewed the radiology report. Lab Review: Laboratory results were reviewed and interpreted by myself the emergency room physician. No leukocytosis. No anemia. No renal failure. Serial troponins are negative. Liver enzymes are normal. I reviewed the patient's medical record. Reexamination: Patient remained stable. No increased work of breathing. No altered mental status. No focal motor deficits. Assessment and plan: Noncardiac chest pain ?Toradol and IV Zofran - Discharged home - Discussed plan with patient. Answered any questions. - Evaluation and treatment of this problem were appropriate in the emergency setting. Lab Data 04/15/25 06:20 04/15/25 06:20 Radiology Impressions Chest X-Ray 04/15/25 06:04 IMPRESSION: No acute abnormality demonstrated. Laboratory Results WBC 7.82 10^3/uL (3.29-11.43) 04/15/25 06:20 RBC 5.41 10^6/uL (3.85-5.65) 04/15/25 06:20 Hgb 17.00 g/dL (11.27-16.99) H 04/15/25 06:20 Hct 46.4 % (37-53) 04/15/25 06:20 MCV 85.8 fl (82-101) 04/15/25 06:20 MCH 31.4 pg (27-33) 04/15/25 06:20 MCHC 36.6 g/dL (30-55) 04/15/25 06:20 RDW 12.0 % (12.1-15.1) L 04/15/25 06:20 Plt Count 294 10^3/cmm (157-399) 04/15/25 06:20 MPV 9.2 fL (7.4-10.4) 04/15/25 06:20 Neut % (Auto) 66.4 % 04/15/25 06:20 Lymph % (Auto) 20.6 % 04/15/25 06:20 [place] % (Auto) 10.9 % 04/15/25 06:20 Eos % (Auto) 1.2 % 04/15/25 06:20 Baso % (Auto) 0.4 % 04/15/25 06:20 Neut # (Auto) 5.20 10^3/uL (1.8-7.7) 04/15/25 06:20 Lymph # (Auto) 1.6 10^3/uL (0.8-4.8) 04/15/25 06:20 [place] # (Auto) 0.9 10^3/uL (0.2-0.9) 04/15/25 06:20 Eos # (Auto) 0.1 10^3/uL (0.0-0.8) 04/15/25 06:20 Baso # (Auto) 0.0 10^3/uL (0.0-0.1) 04/15/25 06:20 Nucleated RBC % (auto) 0 % 04/15/25 06:20 Nucleated RBCs # 0.0 /100WBC 04/15/25 06:20 Sodium 136 mmol/L (136-145) 04/15/25 06:20 Potassium 4.1 mmol/L (3.5-5.1) 04/15/25 06:20 Chloride 99 mmol/L (98-107) 04/15/25 06:20 Carbon Dioxide 25 mmol/L (22-29) 04/15/25 06:20 Anion Gap 16.1 (5-19) 04/15/25 06:20 BUN 15 mg/dL (6-20) 04/15/25 06:20 Creatinine 1.1 mg/dL (0.7-1.2) 04/15/25 06:20 GFR Calculation 77.6 mL/min (90-130) L 04/15/25 06:20 Glucose 90 mg/dL (65-115) 04/15/25 06:20 Calculated Osmolality 282 mOsm/kg (285-295) L 04/15/25 06:20 Calcium 9.6 mg/dL (8.5-10.5) 04/15/25 06:20 Total Bilirubin 0.7 mg/dL (0.15-1.2) 04/15/25 06:20 AST 19 U/L (0-40) 04/15/25 06:20 ALT 33 U/L (0-41) 04/15/25 06:20 Alkaline Phosphatase 83 U/L (40-130) 04/15/25 06:20 Creatine Kinase 123 U/L (39-308) 04/15/25 06:20 Troponin T Baseline < 6 ng/L (0-15) 04/15/25 06:20 Troponin T 120 Minute < 6.0 ng/L (0-15) 04/15/25 08:16 Delta Troponin T 0 ABS# (0-10) 04/15/25 08:16 NT-Pro-B Natriuret Pep < 36 pg/mL (0-125) 04/15/25 06:20 Total Protein 7.2 g/dL (6.6-8.7) 04/15/25 06:20 Albumin 4.6 g/dL (3.5-5.2) 04/15/25 06:20 Globulin 2.6 g/dL (1.3-4.6) 04/15/25 06:20 All radiology interpretation(s) finalized by discharge Discharge Plan Discharge Patient Disposition: Home Clinical Impression: Non-cardiac chest pain Condition: Stable Prescriptions: No Action ondansetron 4 mg tablet,disintegrating 4 mg PO Q6H PRN (Reason: nausea and vomiting) Qty: 14 0RF Discharge Orders: Discharge ED (Routine); Ordered 04/15/25 Ordered By: Priyanka Jorgensen Discharge Diet: As Directed Discharge Activity: Increase activity as tolerated Patient Instructions: Noncardiac Chest Pain (ED), Opioid Safety, Pain Management, Patient Portal & Ghazal Instructions Activity Restrictions/Additional Instructions: Thank you for choosing [facility] for your healthcare needs today. You have been screened and evaluated and felt safe for discharge. Health conditions do change or evolve sometimes and as such it is important that you follow up with your Primary Doctor to be re checked, 3-5 days is a general good time frame for follow up. 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
[2025-04-15 06:55] LABS: Alanine Aminotransferase 33 U/L (0-41); Albumin Level 4.6 g/dL (3.5-5.2); Alkaline Phosphatase 83 U/L (40-130); Anion Gap 16.1 (5-19); Aspartate Amino Transferase 19 U/L (0-40); Blood Urea Nitrogen 15 mg/dL (6-20); Calcium 9.6 mg/dL (8.5-10.5); Carbon Dioxide 25 mmol/L (22-29); Chloride 99 mmol/L (98-107); Creatine Phosphokinase 123 U/L (39-308); Globulin 2.6 g/dL (1.3-4.6); Glomerular Filtration Rate 77.6 mL/min (90-130); Glucose 90 mg/dL (65-115); NT Pro B Type Natriuretic Pept < 36 pg/mL (0-125); Osmolality Calculated 282 mOsm/kg (285-295); Potassium 4.1 mmol/L (3.5-5.1); Sodium 136 mmol/L (136-145); Total Bilirubin 0.7 mg/dL (0.15-1.2); Total Protein 7.2 g/dL (6.6-8.7)
[2025-04-15 07:15] VITALS: BP 117/85; PULSE 72; RESP 20; O2SAT 99
[2025-04-15] MEDS: ondansetron 2 mg/ML SDV 2 mL 4 MG IVP (07:17)
[2025-04-15] MEDS: ketorolac 30 mg/mL INJ IVP (07:17)
--- NOTE | 2025-04-15 08:04 | ECG_ITS ---
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
[2025-04-15 08:38] LABS: Troponin 5 2HR < 6.0 ng/L (0-15); Troponin 5 2HR Delta 0 ABS# (0-10)
[2025-04-15 08:55] VITALS: BP 126/91; PULSE 67; PULSE 70; O2SAT 100; O2SAT 99
== END 2025-04-15 09:08 | disposition home or self-care (01) ==
PROVIDERS: Emergency Provider Emergency Medicine
DX: R07.89 Other chest pain (principal)
CPT/HCPCS: 36415; 71045; 80048; 80053; 82550; 83880; 84484; 85025; 93005; 96374; 96375; 99285; J1885; J2405